=== PATIENT | female | born 1930 ===

== ENCOUNTER 2017-03-05 10:41 | Emergency (ER) | payer MEDICARE ==
--- NOTE | 2017-03-05 11:57 | C.PDOC ---
History Of Present Illness A 87 year old female presents to the emergency room for the evaluation of left chest wall/ribcage pain that has developed over the last 4 days after sustaining a mechanical fall. Patient currently wears a long boot on her right foot due to a previous injury. Patient reports that she tripped over the boot and fell down. Patient states that she landed on her left side on top of a pile of magazines. Patient notes some bruising over the left ribcage. Patient otherwise denies chest pain, shortness of breath, dyspnea, nausea, vomiting, diarrhea, head trauma/LOC, headaches, or any other complaints. Time Seen by Provider: 03/05/17 11:40 Chief Complaint (Nursing): Rib Injury History Per: Patient History/Exam Limitations: no limitations Onset/Duration Of Symptoms: Days (4) Current Symptoms Are (Timing): Still Present Severity: Mild Recent travel outside of the [place]: No Past Medical History Reviewed: Historical Data, Nursing Documentation, Vital Signs Vital Signs: Last Vital Signs Temp 98.4 F 03/05/17 14:47 Pulse 66 03/05/17 14:47 Resp 18 03/05/17 14:47 BP 177/77 H 03/05/17 14:47 Pulse Ox 96 03/05/17 14:47 Surgical History: Pacemaker Family History: States: No Known Family Hx - Social History Hx Alcohol Use: No Hx Substance Use: No - Immunization History Hx Tetanus Toxoid Vaccination: Yes Hx Influenza Vaccination: Yes Hx Pneumococcal Vaccination: Yes Review Of Systems Except As Marked, All Systems Reviewed And Found Negative. Constitutional: Negative for: Fever, Chills Cardiovascular: Negative for: Chest Pain Respiratory: Negative for: Shortness of Breath, Wheezing Gastrointestinal: Negative for: Nausea, Vomiting, Diarrhea Musculoskeletal: Positive for: Other (Left chest wall/ribcage pain) Neurological: Negative for: Weakness, Numbness, Headache, Dizziness Physical Exam - Physical Exam Appears: Well, Non-toxic, No Acute Distress Skin: Normal Color, Warm, Dry Head: Atraumatic, Normacephalic Eye(s): bilateral: Normal Inspection Ear(s): Bilateral: Normal Nose: Normal, No Discharge Oral Mucosa: Moist Tongue: Normal Appearing Throat: Normal Neck: Normal, Normal ROM, No Midline Cervical Tenderness, No Paracervical Tenderness, No Step Off Deformity, Supple Chest: Symmetrical, No Deformity, Tenderness (mild tenderness overlying left lateral lower ribcage 10-12 intercostal spaces with diffuse ecchymoses, linear superficial scratch noted in middle.) Cardiovascular: Rhythm Regular, No Friction Rub, No Murmur, No JVD Respiratory: Normal Breath Sounds, No Stridor, No Wheezing Gastrointestinal/Abdominal: Normal Exam, Soft, No Tenderness, No Distention, No Guarding Back: Normal Inspection, No CVA Tenderness, No Vertebral Tenderness, No Paraspinal Tenderness Extremity: Normal ROM, No Tenderness, No Pedal Edema, No Deformity, No Swelling Extremity: Bilateral: Atraumatic Neurological/Psych: Oriented x3, Normal Speech, Normal Cognition, Normal Motor, Normal Sensation, Normal Reflexes ED Course And Treatment O2 Sat by Pulse Oximetry: 95 Pulse Ox Interpretation: Normal - CT Scan/US Chest CT Other Rad Studies (CT/US): Read By Radiologist, Radiology Report Reviewed CT/US Interpretation: IMPRESSION: No evidence of pleural effusion or pneumothorax. No evidence of acute pulmonary disease. Mild cardiomegaly. Progress Note: On re-evaluation, pt is afebrile, hemodynmaicaly stable. non- toxic. Ambultory in ED with stable gait. PulseOx 96%RA. ENT: no acute finidngs. neck: (-) midline tenderness. Lungs: CTA B/L, BS equal B/L. CVS: (+ )S1S2, reg. Abd: benign. CT chest rersults review and appears without acute findings. Pt has clinical findings c/w left side chest wall contusion, mild ecchymoses. Pt and family member advised on course of ds. ref. to F/u with PMD in 2-3 days for re-eval. return to ED if any worsening or new changes. Disposition Counseled Patient/Family Regarding: Studies Performed, Diagnosis, Need For Followup - Disposition Referrals: Francois Zabala MD [Medical Doctor] - Disposition: HOME/ ROUTINE Disposition Time: 14:54 Condition: STABLE Additional Instructions: ice to area of contusion Tylenol for pain Follow up with PMD in 2-3 days for re-evaluation. Return to Ed if any worsening or new changes. Instructions: Blunt Chest Trauma (ED) - Clinical Impression Clinical Impression: Chest wall contusion - Scribe Statement The provider has reviewed the documentation as recorded by the Scribe Suhas Fontana All medical record entries made by the Radha were at my direction and personally dictated by me. I have reviewed the chart and agree that the record accurately reflects my personal performance of the history, physical exam, medical decision making, and the department course for this patient. I have also personally directed, reviewed, and agree with the discharge instructions and disposition.
--- NOTE | 2017-03-05 14:11 | CT ---
PROCEDURE: CT Chest without contrast HISTORY: injury COMPARISON: None. TECHNIQUE: Contiguous axial images were obtained through the chest without intravenous contrast enhancement. Sagittal and coronal reconstructions were performed. Radiation dose (DLP): 658.4 mGy-cm. This CT exam was performed using one or more of the following dose reduction techniques: Automated exposure control, adjustment of the mA and/or kV according to patient size, and/or use of iterative reconstruction technique. FINDINGS: LUNGS: Nonspecific mild ground-glass opacities and mosaic appearance in the upper lobes. No evidence of acute pathology otherwise. MEDIASTINUM: The thoracic aorta is is ectatic and slightly tortuous. The heart is mildly enlarged. Main pulmonary artery unremarkable. No vascular congestion. No lymphadenopathy. Left-sided pacemaker is seen in place with wires extending to the heart. PLEURA: No pleural fluid. No pneumothorax. BONES: No evidence of acute displaced fracture . No evidence of destructive bony lesion. UPPER ABDOMEN: Grossly unremarkable. OTHER FINDINGS: None. IMPRESSION: No evidence of pleural effusion or pneumothorax. No evidence of acute pulmonary disease. Mild cardiomegaly.
[2017-03-05 14:48] VITALS: BP 177/77; PULSE 66; RESP 18; TEMP 98.4
[2017-03-05 14:57] VITALS: O2SAT 95
== END 2017-03-05 15:05 | disposition home or self-care (01) ==
LOC: C.ER 10:41
DX: S20.212A Contusion of left front wall of thorax, initial encounter (principal); W01.0XXA Fall on same level from slipping, tripping and stumbling without subsequent striking against object, initial encounter; Y92.009 Unspecified place in unspecified non-institutional (private) residence as the place of occurrence of the external cause